=== PATIENT | female | born 1935 | race Caucasian/White ===

== ENCOUNTER 2018-01-07 17:46 | Inpatient (IN) | payer BC, MEDICARE ==
[~2018-01-07 17:46] MED LIST: DOCU-270 PO; MAG30ORA PO; MAGN400O6 PO
[2018-01-07 22:00] VITALS: BP 152/88
--- NOTE | 2018-01-07 22:00 | NUR ---
ALAN RN NOTE PT RECEIVED ON GURAXSON AND TRANSFERRED SAFELY TO ROOM 114-1 WITH 2 EMT'S. A/O X1 AND NOTED WITH FACIAL DROOP TO LEFT SIDE OF FACE. NOTED WITH APHASIA BUT ABLE TO SAY YES AND NO. ALSO NOTED WITH RIGHT UPPER AND LOWER EXTREMITY WEAKNESS/FLACCID. STRONG PULSES PALPABLE TO BUE/BLE. HAND COMBAT RIFLE CREWMEMBER ABLE WITH LEFT HAND AND FLACCID WITH RIGHT HAND. ABLE TO PUSH BACK ON HAND WITH LEFT FOOT BUT UNABLE TO MOVE RIGHT FOOT. NO C/O PAIN OR DISCOMFORT NOTED. HOB ELEVATED AND ON ASPIRATION PRECAUTIONS. ON 2L OF O2 VIA NC AND SATURATING WELL. SPOKE WITH BROTHER CELESTE (DPOA) AND STATED PT IS DNR/DNI. PT ALSO HAS ADVANCED DIRECTIVE. IV R HAND #20 AND LAC #18 CLEAN, DRY AND FLUSHING WELL. ONTIVEROS CATHETER IN PLACE. TELE-SR. LEFT MESSAGE TO AUXILIARY POWERPLANT OPERATOR AND AWAITING CALL BACK FOR ORDERS. WILL CONTINUE TO MONITOR.
[2018-01-07] MEDS ORDERED: LORA0.5T PO (23:23)
[2018-01-07] MEDS ORDERED: QUET25TA PO (23:23)
[2018-01-08] VITALS: BP 158/78
[2018-01-08] MEDS ORDERED: MAGNESIUM HYDROXIDE 30 ML UDC PO PRN
[2018-01-08] MEDS ORDERED: ACETAMINOPHEN 325 MG TABLET PO PRN
[2018-01-08] MEDS ORDERED: ZOLPIDEM TARTRATE 5 MG TABLET PO PRN
[2018-01-08] MEDS ORDERED: MAG HYDROX/AL HYDROX/SIMETH 30 ML UDC PO PRN
[2018-01-08] MEDS ORDERED: ONDANSETRON HCL/PF 4 MG/2 ML VIAL IVP PRN
[2018-01-08] MEDS: BLOOD SUGAR DIAGNOSTIC 1 EACH STRIP IN SCH ×4 (01:00→17:44)
[2018-01-08] MEDS: ATORVASTATIN 40 MG TABLET PO SCH ×3 (01:01→22:00)
[2018-01-08 01:07] LABS: APPEARANCE,URINE CLEAR (CLEAR); BILIRUBIN,URINE 1+ (NEGATIVE); BLOOD, URINE 2+ Ery/uL (NEGATIVE); KETONES,URINE 1+ (NEGATIVE); LEUKOCYTE ESTERASE ,URINE NEGATIVE (NEGATIVE); NITRITE, URINE NEGATIVE (NEGATIVE); PH,URINE 5.5 (5.0-8.0); PROTEIN,URINE 1+ mg/dl (NEGATIVE); UGLUCOSE NEGATIVE (NEGATIVE); UROBILINOGEN,URINE 0.2 EU/dL (0.2)
[2018-01-08 01:17] LABS: COLOR,URINE DARK YELLOW (YELLOW)
[2018-01-08 01:20] LABS: BACTERIA,URINE Moderate /HPF (None Seen); RBC,URINE 51-80 /HPF (0-2); SQUAMOUS EPITHELIAL CELL,UR Moderate /HPF (None Seen)
[2018-01-08 04:00] VITALS: BP 150/94
[2018-01-08 06:38] LABS: BASOPHILS % (AUTO) 0.2 % (0.0-2.0); EOSINOPHILS % (AUTO) 1.2 % (0.0-6.0); HEMATOCRIT 38 % (33-45); HEMOGLOBIN 13.2 g/dL (11.5-14.8); LYMPHOCYTES % (AUTO) 11.2 % (20.0-44.0); MEAN CORPUSCULAR HGB CONC 35 g/dl (31.0-36.0); MEAN CORPUSCULAR VOLUME 90 fL (82-100); MONOCYTES # (AUTO) 0.9 /CMM (0.1-1.30); MONOCYTES % (AUTO) 9.5 % (2.0-12.0); NEUTROPHILS # (AUTO) 7.3 /CMM (1.8-8.9); NEUTROPHILS % (AUTO) 77.9 % (43.0-81.0); PLATELET COUNT (AUTO) 307 /CMM (150-450); RDW COEFFICIENT OF VARIATION 13.5 (11.5-15.0); RED BLOOD CELL COUNT(AUTO) 4.22 MIL/uL (4.0-5.2); WHITE BLOOD COUNT (AUTO) 9.3 K/uL (4.3-11.0)
[2018-01-08 06:40] LABS: INR 1.14 (0.87-1.13)
[2018-01-08 06:58] LABS: ALANINE AMINOTRANSFERASE 21 U/L (12-78); ALBUMIN 2.9 g/dL (3.4-5.0); ALKALINE PHOSPHATASE 59 U/L (46-116); ASPARTATE AMINOTRANSFERASE 30 U/L (15-37); B-TYPE NATRIURETIC PEPTIDE 120 PG/ML (0-125); BILIRUBIN,TOTAL 0.9 mg/dL (0.2-1.0); CARBON DIOXIDE 26 mmol/L (21-32); CHLORIDE 106 mmol/L (98-107); CHOLESTEROL 203 mg/dL (<200); CREATININE 0.8 mg/dL (0.6-1.3); GLUCOSE 109 mg/dL (74-106); HDL CHOLESTEROL 47 mg/dL (40-60); LDL 138 mg/dL (0-99); MAGNESIUM 2.1 mg/dL (1.8-2.4); PHOSPHORUS 2.9 mg/dL (2.5-4.9); POTASSIUM 3.6 mmol/L (3.5-5.1); SODIUM SERUM 140 mmol/L (136-145); THYROID STIMULATING HORMONE 1.192 uIU/mL (0.358-3.74); TOTAL PROTEIN, SERUM 6.1 g/dL (6.4-8.2); TRIGLYCERIDES 72 mg/dL (30-150); UREA NITROGEN, BLOOD 24 mg/dL (7-18)
--- NOTE | 2018-01-08 07:15 | NUR ---
RN INITIAL NOTES: REC'D PT AWAKE ON BED, NOT IN ANY DISTRESS, A/O X 2-3, NOTED SLURRED/DELAYED SPEECH. ON NC/2LPM, NO SOB. ON TELEMONITOR, SR. HAS 2 IV LINE ACCESS: R HAND G20 & L AC G18, SL, BOTH FLUSHING WELL, NO S/SX OF INFECTION NOTED. NOTED R SIDED HEMIPARESIS. PROVIDED COMFORT & SAFETY MEASURES. BED KEPT LOW & IN LOCKED POS. CALL LIGHT PLACED W/IN REACH. WILL CONTINUE TO MONITOR & ATTEND PT NEEDS.
[2018-01-08] MEDS ORDERED: BLOOD SUGAR DIAGNOSTIC 1 EACH STRIP IN SCH (07:30)
--- NOTE | 2018-01-08 07:40 | NUR ---
RN NOTES: PT SEEN & EXAMINED BY DR. FUCHS W/ ORDERS MADE & CARRIED OUT.
[2018-01-08 08:00] VITALS: BP 130/74
[2018-01-08] MEDS: PANTOPRAZOLE 40 MG VIAL IV SCH (08:55)
[2018-01-08] MEDS: Z GUARD REMEDY 2 OZ OINT TP PRN (08:56)
[2018-01-08] MEDS: DOCUSATE SODIUM 100 MG CAPSULE PO SCH ×2 (09:00→16:37)
[2018-01-08] MEDS: ASPIRIN EC 325 MG TABLET.DR PO SCH (09:00)
--- NOTE | 2018-01-08 09:03 | NUR ---
WOUND CARE CONSULT: PT PRESENTS WITH BLANCHABLE REDNESS TO BUTTOCKS, PRESENT ON ADMISSION. ALL SKIN PROTECTION RECOMMENDATIONS DISCUSSED WITH NURSING STAFF. CURRENT MYKEL SCORE IS 14. WILL SEE PRN. LEFT SHOULDER LESION NOTED. DEFER TO MD FOR LESION. ALL SKIN PROTECTION MEASURES IN PLACE. MD IN AGREEMENT WITH PLAN OF CARE. Addendum: 01/08/18 at 0905 by NANCY REYNOLDS WNDNU Amended: Links added.
--- NOTE | 2018-01-08 09:30 | NUR ---
RN NOTES: SWALLOW EVAL DONE BY QUIANA MEJIA PT FAILED THE SWALLOW EVAL. KEEP NPO FOR NOW.
--- NOTE | 2018-01-08 10:00 | NUR ---
RN NOTES: CALLED MARY LOU DPOA & INFORMED ABOUT THE ORDERED MRI & MRA PER NEUROLOGIST. MARY LOU GAVE CONSENT OVER THE PHONE FOR THE PROCEDURE INCLUDING CONSENT FOR CONTRAST.
[2018-01-08] MEDS: IV NS 0.9% 1,000 ML IV PRN (10:09)
[2018-01-08] MEDS: POTASSIUM CL. PREMIX PERIPHER. 50 ML IV SCH ×2 (10:09→11:09)
--- NOTE | 2018-01-08 11:00 | NUR ---
RN NOTES: MRI/ MRA PROCEDURE DONE, PT TOLERATED THE PROCEDURE WELL. PT ACCOMPANIED ON THE MRI DEPT VIA ACLS PROTOCOL.
[2018-01-08 12:00] VITALS: BP 138/81
[2018-01-08 16:00] VITALS: BP 147/78
[2018-01-08] MEDS ORDERED: RIVAROXABAN 10 MG TABLET PO SCH (17:00)
[2018-01-08] MEDS ORDERED: GADODIAMIDE 2.5 MMOL/5 ML VIAL ONE (17:36)
--- NOTE | 2018-01-08 18:40 | NUR ---
RN CLOSING NOTES: NO ACUTE CHANGES NOTED W/IN SHIFT. PT STILL SHOWING NEURO DEFICITS - NOTED SLURRED/DELAYED SPEECH & R SIDED HEMIPARESIS. NO SOB WHILE ON NC/2LPM. ON TELEMONITOR, STILL SR. 2 IV LINE ACCESS: R HAND G20 & L AC G18, KEPT PATENT & INTACT W/ NO S/SX OF INFECTION NOTED. MRI & MRA RESULTS WERE COMMUNICATED ALREADY TO DR. FUCHS PER REPORT (AT 2PM). KEPT WELL RESTED. NEEDS ATTENDED. CALL LIGHT PLACED W/IN REACH. WILL ENDORSE TO PM RN FOR CAPRI.
--- NOTE | 2018-01-08 19:35 | NUR ---
SLEEVE SETTER SAFETY STITCH NOTES RECEIVED ON BED ON LEFT SIDE POSITION,BEDBOUND,ONTIVEROS CATH IN PLACE DRAINING YELLOWISH OUTPUT.SALINE LOCK LEFT AC INTACT AND PATENT.RIGHT HAND SALINE LOCK IN PLACE,RUNNING NS AT 100ML/HR RATE.DVT PUMP IN USED,RIGHT SIDED WEAKNESS HX NOTED.A/O X1,WITH SLURRED SPEECH NOTED DUE TO CVA HX.REPOSITION PER PROTOCOL.CALL LIGHT IN REACH,WILL CONTINUE TO MONITOR STATUS.
[2018-01-08 20:00] VITALS: BP 144/69
[2018-01-09] VITALS: BP 190/98
--- NOTE | 2018-01-09 | NUR ---
DRILLING INSPECTOR NOTES BLOOD PRESSURE AT MIDNIGHT 190/98,SCREAMING IN PAIN.
[2018-01-09] MEDS: BLOOD SUGAR DIAGNOSTIC 1 EACH STRIP IN SCH ×5 (00:15→23:03)
--- NOTE | 2018-01-09 00:30 | NUR ---
COMPUTER SECURITY SPECIALIST NOTES ACCU-CHECK BLOOD SUGAR CHECK 87.NO INSULIN COVERAGE
--- NOTE | 2018-01-09 00:45 | NUR ---
CONSULTING SME NOTES ACNO FILER FINISH WAS PAGE AND CALLED BACK WITH NEW ORDERS NOTED AND CARRIED OUT.
[2018-01-09] MEDS: MORPHINE SULFATE INJ 4 MG/ML DISP.SYRIN IV PRN ×4 (00:58→23:05)
[2018-01-09] MEDS: IV NS 0.9% 1,000 ML IV PRN ×2 (00:58→23:04)
--- NOTE | 2018-01-09 00:58 | NUR ---
AREA LOSS PREVENTION MANAGER NOTES IVF NS 75ML/HR RATE STARTED. MORPHINE 2MG IV GIVEN ORDERED FOR PAIN 9/10 ON PAIN SCALE.
[2018-01-09 04:00] VITALS: BP 169/86
--- NOTE | 2018-01-09 05:30 | NUR ---
WIRE THREADER NOTES ACCU-CHECK BLOOD SUGAR CHECK 91,NO INSULIN COVERAGE.
--- NOTE | 2018-01-09 06:32 | NUR ---
AUTO WASH BUFFER NOTES CALM AND QUIET THIS TIME.IVF INFUSING AT 75ML/HR RATE VIA RIGHT HAND.ONTIVEROS REMAINS IN PLACE DRAINING YELLOW ORANGE OUTPUT.REPOSITION PER PROTOCOL.CONTINUE NPO,FAILED SWALLOW EVAL.IN NO ACUTE DISTRESS.WILL ENDORSE TO DAY NURSE FOR CAPRI.
[2018-01-09 06:49] LABS: BASOPHILS # (AUTO) 0.1 /CMM (0.0-0.2); BASOPHILS % (AUTO) 0.8 % (0.0-2.0); EOSINOPHILS % (AUTO) 1.4 % (0.0-6.0); HEMATOCRIT 37 % (33-45); HEMOGLOBIN 12.8 g/dL (11.5-14.8); LYMPHOCYTES # (AUTO) 0.9 /CMM (0.8-4.8); LYMPHOCYTES % (AUTO) 10.4 % (20.0-44.0); MEAN CORPUSCULAR HGB CONC 34 g/dl (31.0-36.0); MEAN CORPUSCULAR VOLUME 90 fL (82-100); MONOCYTES # (AUTO) 0.8 /CMM (0.1-1.30); NEUTROPHILS # (AUTO) 6.7 /CMM (1.8-8.9); NEUTROPHILS % (AUTO) 78.4 % (43.0-81.0); PLATELET COUNT (AUTO) 299 /CMM (150-450); RDW COEFFICIENT OF VARIATION 14.4 (11.5-15.0); RED BLOOD CELL COUNT(AUTO) 4.15 MIL/uL (4.0-5.2); WHITE BLOOD COUNT (AUTO) 8.6 K/uL (4.3-11.0)
[2018-01-09 06:51] LABS: ALANINE AMINOTRANSFERASE 20 U/L (12-78); ALKALINE PHOSPHATASE 61 U/L (46-116); ASPARTATE AMINOTRANSFERASE 26 U/L (15-37); BILIRUBIN,TOTAL 0.9 mg/dL (0.2-1.0); CALCIUM, SERUM 9.1 mg/dL (8.5-10.1); CARBON DIOXIDE 24 mmol/L (21-32); CHLORIDE 106 mmol/L (98-107); CREATININE 0.7 mg/dL (0.6-1.3); GLUCOSE 95 mg/dL (74-106); PHOSPHORUS 3.1 mg/dL (2.5-4.9); POTASSIUM 3.9 mmol/L (3.5-5.1); SODIUM SERUM 141 mmol/L (136-145); TOTAL PROTEIN, SERUM 6.2 g/dL (6.4-8.2); UREA NITROGEN, BLOOD 25 mg/dL (7-18)
--- NOTE | 2018-01-09 07:55 | NUR ---
AUTOMATION TENDER OPENING NOTE PATIENT RECEIVED IN BED.AXOX1.ON O2 VIA NASAL CANULA 2L.NO SOB NO DISTRESS NOTED.ON TELE MONITOR WITH SR 85.IV ON R HAND #18 IVF NS AT 75CC/HR.L AC #18.HAS ONTIVEROS CATH .ALL NEEDS MET. CALL LIGHT IN REACH.BED LOCKED AND IN LOW POSITION.SRX3.CONTINUE TO MONITOR.
[2018-01-09 08:00] VITALS: BP 159/90
[2018-01-09] MEDS: PANTOPRAZOLE 40 MG VIAL IV SCH (08:39)
[2018-01-09] MEDS: DOCUSATE SODIUM 100 MG CAPSULE PO SCH ×2 (08:39→16:57)
[2018-01-09] MEDS: ASPIRIN EC 325 MG TABLET.DR PO SCH (08:40)
--- NOTE | 2018-01-09 13:00 | NUR ---
ALLEY WORKER NOTES SEEN BY FABIANA MCDANIEL ,PLAN TO D/C TO SNF DISCUSSED WITH BOARD AND CARE STAFF AT THE BEDSIDE.SWALLOW EVAL DONE.PATIENT IS ON PUREE WITH HONEY THICK LIQUID.
[2018-01-09 16:00] VITALS: BP 157/87
--- NOTE | 2018-01-09 19:00 | NUR ---
INSURANCE DEFENSE PARALEGAL SHIFT END NOTE PATIENT IN BED.AXOX1.ON O2 VIA NASAL CANULA 2L.NO SOB NO DISTRESS NOTED.ON TELE MONITOR WITH SR 82.IV ON R HAND #18 IVF NS AT 75CC/HR.L AC #18.HAS ONTIVEROS CATH .ALL NEEDS MET. CALL LIGHT IN REACH.BED LOCKED AND IN LOW POSITION.SRX3.WILL ENDORSE TO PM NURSE FOR CAPRI.
--- NOTE | 2018-01-09 19:38 | NUR ---
MS RN NOTES RECEIVED PT ON BED. ALERT ORIENTEDX1. ON NASAL CANNULA 2LPM SATURATING WELL. IV ACCESS ON RHAND AND LAC #18 PATENT AND INTACT NS @75CC/HR. HEAD OF BED ELEVATED. SIDE RAILS UP. CALL LIGHT WITHIN REACH. WILL CONTINUE TO MONITOR PT CLOSELY.
[2018-01-09 20:00] VITALS: BP 150/87
--- NOTE | 2018-01-09 20:10 | NUR ---
MS RN NOTES CALL ECLECTIC DOCTOR DR FOR PT HIGH BLOOD RPESSURE OF 185/101. WILL PLACED ORDER VERBALIZED BY THE ECLECTIC DOCTOR.
--- NOTE | 2018-01-09 20:15 | NUR ---
MS RN NOTES PRN HYDRALAZINE NOT GIVEN. PT ON PERMISSIVE HTN PLAN
[2018-01-09] MEDS ORDERED: hydrALAZINE HCL IV 20 MG VIAL IV PRN (20:30)
[2018-01-09 21:00] VITALS: BP 150/87
[2018-01-09] MEDS: ATORVASTATIN 40 MG TABLET PO SCH (21:12)
--- NOTE | 2018-01-09 21:12 | NUR ---
MS RN NOTES PT REFUSING LIPITOR. EXPLAINED RISK AND BENEFITS X3. PT STILL REFUSED.
--- NOTE | 2018-01-09 22:19 | NUR ---
MS RN NOTES OFFERED AGAIN LIPITOR, PT STRONGLY REFUSED. EXPLAINED RISK AND BENEFITS X3. WILL CONTINUE TO MONITOR
--- NOTE | 2018-01-09 22:50 | NUR ---
MS RN NOTES PT OFFERED LIPITOR AGAIN. PT STILL REFUSED. CHARGE NURSE INFORMED.
[2018-01-10 04:00] VITALS: BP 166/99
[2018-01-10] MEDS: BLOOD SUGAR DIAGNOSTIC 1 EACH STRIP IN SCH ×3 (05:12→17:20)
--- NOTE | 2018-01-10 07:23 | NUR ---
MS RN NOTES NO ACUTE CHANGES NOTED DURING THE SHIFT. DUE MEDS GIVEN. PROVIDED COMFORT AND SAFETY. ENDORSE TO THE AM NURSE FOR CAPRI.
--- NOTE | 2018-01-10 07:36 | NUR ---
MS RN NOTES PATIENT RECEIVED RESTING INSIDE ROOM. AWAKE, ALERT AND ORIENTED X 1. AROUSABLE TROUGH VERBAL AND TACTILE STIMULI. BREATHING EVEN AND UNLABORED. O2 AT 2L/MIN VIA NC. NO SOB OR ACUTE DISTRESS NOTED. DENIES ANY PAIN OR DISCOMFORT. IV SITE INTACT AND PATENT, NO SWELLING OR BLEEDING NOTED ON SITE. WILL CONTINUE TO MONITOR. BED LOCKED AND IN LOW POSITION. MAINTAINED ASPIRATION PRECAUTION, MAINTAINED HOB ELEVATION AT 45. CALL LIGHT WITHIN EASY REACH
[2018-01-10 08:00] VITALS: BP 141/67
[2018-01-10] MEDS: ASPIRIN EC 325 MG TABLET.DR PO SCH (08:43)
[2018-01-10] MEDS: PANTOPRAZOLE 40 MG VIAL IV SCH (08:44)
[2018-01-10] MEDS: DOCUSATE SODIUM 100 MG CAPSULE PO SCH ×2 (08:44→17:20)
[2018-01-10] MEDS: IV NS 0.9% 1,000 ML IV PRN (14:07)
[2018-01-10 16:00] VITALS: BP 159/82
--- NOTE | 2018-01-10 16:25 | NUR ---
Per case hardener Damian- patient has been accepted at [facility] awaiting aut. Called and eft message to Jackie Gee [facility] case hardener [phone] regarding dc planning needs for SNF rehab Dx. Acute CVA. All clinicals including PT/OT/ST eval faxed to MAR[facility] [phone] for review. Addendum: 01/10/18 at 1708 by EVAN PHAM RN Amended: Links added.
--- NOTE | 2018-01-10 17:10 | NUR ---
received a call back from case resource manager Vivian [phone], case is currently being reviewed for SNF approval. Addendum: 01/10/18 at 1710 by EVAN PHAM RN Amended: Links added.
--- NOTE | 2018-01-10 18:50 | NUR ---
MS RN NOTES PATIENT RESTING INSIDE ROOM, AWAKE, ALERT AND ORIENTED X 1, VERBALLY RESPONSIVE AND RESPONDS TO VERBAL AND TACTILE STIMULI. BREATHING EVEN AND UNLABORED. O2 AT 2L/MIN VIA NC, NO SOB OR ACUTE DISTRESS NOTED. PATIENT DENIES ANY PAIN OR DISCOMFORT AT THIS TIME. NO CHANGES IN LOC NOTED. IV SITE INTACT AND PATENT, NO SWELLING OR BLEEDING NOTED AT THIS TIME. WILL ENDORSE TO INCOMING SHIFT FOR CAPRI. BED LOCKED AND IN LOW POSITION. BILATERAL UPPER SIDE RAILS UP AND LOCKED. CALL LIGHT WITHIN EASY REACH
--- NOTE | 2018-01-10 19:30 | NUR ---
RN NOTES: RECEIVED PATIENT AWAKE ON BED,A/O X1 WITH PERIODS OF CONFUSION, ABLE TO VERBALIZE NEEDS, TAKES TIME TO COMPLETE HER WORDS,ON CLOSE WATCH, FALL,SAFETY, ASPIRATION PRECAUTION OBSERVED, ON 02 AT 2L/MIN SPO2-97%; CANNULA ON LAC G#18 & RH G#18 PATENT; ON IVF OF NS AT 75 ML/HR;KEPT ON SEMI FOWLERS POSITION, NO SOB OR SIGN OF RESPIRATORY DISTRESS NOTED.
[2018-01-10 20:00] VITALS: BP 126/50
[2018-01-10] MEDS: ATORVASTATIN 40 MG TABLET PO SCH (22:18)
--- NOTE | 2018-01-10 22:35 | NUR ---
RN NOTES: PATIENT ABLE TO SWALLOW AND TAKE ORAL MEDICATION CRUSHED WITH APPLESAUCE, TOLERATED WELL; SHE VERBALIZED SHE HAD PAIN 5/10 AND REQUEST FOR MEDICATION, NORCO GIVEN, NON PHARMACOLOGIC INTERVENTION PROVIDED, DIM LIT AND BACK RUB DONE,WILL CONTINUE TO MONITOR.
[2018-01-10] MEDS: HYDROCODONE/APAP 5/325MG 1 EACH TABLET PO PRN (22:39)
--- NOTE | 2018-01-11 | NUR ---
RN NOTES: BLOOD SUGAR CHECK-95, ABLE TO TAKE A SHORT NAP IN BETWEEN, WILL CONTINUE TO MONITOR FOR SIGN OF HYPER/HYPOGLYCEMIA.
[2018-01-11] MEDS: BLOOD SUGAR DIAGNOSTIC 1 EACH STRIP IN SCH ×4 (00:26→18:24)
[2018-01-11] MEDS: IV NS 0.9% 1,000 ML IV PRN ×2 (03:24→16:10)
--- NOTE | 2018-01-11 03:31 | NUR ---
RN NOTES: IVF FINISHED, NEW BOTTLE OF NS STARTED AT 75 ML/HR.
[2018-01-11 04:00] VITALS: BP 154/95
--- NOTE | 2018-01-11 05:23 | NUR ---
RN NOTES: ASLEEP AT SHORT INTERVALS, MORNING CARE DONE, NO BM, BED BATH RENDERED, CLEAN AND CHANGE,SHE IS MORE CONVERSANT AND RESPONDING TO NURSES CONVERSATION, SHE SAY "THANK YOU" AFTER SHE WAS CHANGE,THEN SHE GO BACK TO SLEEP.
--- NOTE | 2018-01-11 06:52 | NUR ---
RN NOTES: ASLEEP AT SHORT INTERVAL, NO PAIN OR DISCOMFORT, LYING COMFORTABLE IN BED, ENDORSED FOR CONTINUITY OF CARE.CALL LIGHT WITHIN EASY REACH.
--- NOTE | 2018-01-11 07:31 | NUR ---
MS RN OPENING NOTES RECEIVED PATIENT AWAKE IN BED IN NO ACUTE SIGNS OF DISTRESS. A/O X1, SAME VERBALLY RESPONSIVE, DENIES PAIN OR DISCOMFORTS AT THIS TIME. ON 02 VIA N/C 2LPM, RESPIRATION EVEN AND UNLABORED. IV ACCESS ON LAC G#18 INTACT AND PATENT, NO SWELLING OR PHLEBITIS NOTED TO SITE. ONTIVEROS CATH IN PLACE AND ACTIVELY DRAINING CLEAR YELLOW OUTPUT TO BEDSIDE COLLECTION BAG. BED IN LOW/LOCKED POSITION WITH SIDE-RAILS UP X3. CALL LIGHT WITHIN REACH. WILL MAINTAIN ALL SAFETY MEASURES AND CONTINUE TO MONITOR PT'S STATUS.
[2018-01-11 08:00] VITALS: BP 151/70
[2018-01-11] MEDS: PANTOPRAZOLE 40 MG VIAL IV SCH (09:00)
[2018-01-11] MEDS: DOCUSATE SODIUM 100 MG CAPSULE PO SCH ×2 (09:01→16:32)
[2018-01-11] MEDS: ASPIRIN EC 325 MG TABLET.DR PO SCH (09:01)
[2018-01-11 16:00] VITALS: BP 149/76
--- NOTE | 2018-01-11 18:38 | NUR ---
MS RN CLOSING NOTES PATIENT ASLEEP IN BED AT THIS TIME, EASILY AWAKENS TO TACTILE AND VERBAL STIMULI. NO SIGNIFICANT CHANGES NOTED THROUGHOUT THE DAY. PT ON 02 VIA N/C 2LPM, BREATHING EVEN WITH NO SOB NOTED. IV ACCESS ON LAC G#18 INTACT AND PATENT, IVF OF NS @ 75ML/HR INFUSING WELL, NO SWELLING OR PHLEBITIS NOTED TO SITE. ONTIVEROS CATH IN PLACE AND ACTIVELY DRAINING CLEAR YELLOW OUTPUT TO BEDSIDE COLLECTION BAG, ONTIVEROS CARE DONE. PT TURNED AND REPOSITIONED Q2HRS AND PRN. HOB KEPI ELEVATED. BED IN LOW/LOCKED POSITION WITH SIDE-RAILS UP X3. CALL LIGHT WITHIN REACH. ALL SAFETY MEASURES KEPT IN PLACE. DNR/DNI STATUS MAINTAINED. ALL NEEDS AND CARE PROVIDED WELL. WILL ENDORSE TO HAT BLOCKER NURSE FOR CAPRI.
--- NOTE | 2018-01-11 19:40 | NUR ---
MS RN NOTE RECEIVED PATIENT FROM DAY SHIFT, PATIENT IS ALERT AND ORIENTEDX2, RIGHT SIDE WEAKNESS NOTED, RESTING IN BED COMFORTABLY AT THIS TIME. IV ON LEFT AC AND RIGHT HAND ARE PATENT AND INTACT, NS IS RUNNING. SRX2, BED IN LOW POSITION, CALL LIGHT WITHIN REACH, WILL CONTINUE TO MONITOR PATIENT.
[2018-01-11 20:00] VITALS: BP 157/84
[2018-01-11] MEDS: ATORVASTATIN 40 MG TABLET PO SCH (21:06)
[2018-01-12] MEDS: BLOOD SUGAR DIAGNOSTIC 1 EACH STRIP IN SCH ×4 (00:12→17:35)
[2018-01-12 04:00] VITALS: BP 163/95
[2018-01-12] MEDS: IV NS 0.9% 1,000 ML IV PRN ×2 (04:13→21:48)
--- NOTE | 2018-01-12 06:34 | NUR ---
MS RN NOTE PATIENT IS RESTING IN BED COMFORTABLY, NO ACUTE EVENT NOTED THROUGHOUT THE SHIFT. NO S/S OF RESPIRATORY DISTRESS OR FACIAL GRIMACE NOTED. TWO IV SITES ARE PATENT AND INTACT, NS IS RUNNING. WILL ENDORSE TO DAY SHIFT NURSE FOR CAPRI.
[2018-01-12 06:37] LABS: BASOPHILS % (AUTO) 0.5 % (0.0-2.0); EOSINOPHILS % (AUTO) 3.2 % (0.0-6.0); HEMATOCRIT 37 % (33-45); HEMOGLOBIN 12.6 g/dL (11.5-14.8); LYMPHOCYTES # (AUTO) 0.8 /CMM (0.8-4.8); LYMPHOCYTES % (AUTO) 10.2 % (20.0-44.0); MEAN CORPUSCULAR HGB CONC 34 g/dl (31.0-36.0); MEAN CORPUSCULAR VOLUME 90 fL (82-100); MONOCYTES # (AUTO) 0.7 /CMM (0.1-1.30); MONOCYTES % (AUTO) 9.8 % (2.0-12.0); NEUTROPHILS # (AUTO) 5.7 /CMM (1.8-8.9); NEUTROPHILS % (AUTO) 76.3 % (43.0-81.0); PLATELET COUNT (AUTO) 304 /CMM (150-450); RDW COEFFICIENT OF VARIATION 14.1 (11.5-15.0); RED BLOOD CELL COUNT(AUTO) 4.11 MIL/uL (4.0-5.2); WHITE BLOOD COUNT (AUTO) 7.5 K/uL (4.3-11.0)
[2018-01-12 06:58] LABS: CALCIUM, SERUM 8.6 mg/dL (8.5-10.1); CARBON DIOXIDE 28 mmol/L (21-32); CHLORIDE 104 mmol/L (98-107); CREATININE 0.6 mg/dL (0.6-1.3); GLUCOSE 104 mg/dL (74-106); MAGNESIUM 1.8 mg/dL (1.8-2.4); PHOSPHORUS 2.4 mg/dL (2.5-4.9); POTASSIUM 3.4 mmol/L (3.5-5.1); SODIUM SERUM 139 mmol/L (136-145); UREA NITROGEN, BLOOD 11 mg/dL (7-18)
--- NOTE | 2018-01-12 07:20 | NUR ---
MS RN OPENING NOTES RECEIVED PATIENT IN BED SLEEPING, EASILY AROUSE. PATIENT IS ALERT AND ORIENTEDX2, RIGHT SIDE WEAKNESS NOTED, NOTED WITH FACIAL DROOP TO LEFT SIDE OF FACE DUE TO CVA HX. RIGHT HAND SWELLING NOTED, ELEVATED EXTREMITY. ON 2LPM,VIA NC, SPO2 96% IV SITE INTACT AND PATENT. ONTIVEROS IN PLACE DRAINING CLEAR YELLOW URINE. ASPIRATION PRECAUTION IN PLACE. BED IN LOW/LOCKED POSITION, HOB ELEVATED, SIDERAILS UPX2. CALL LIGHT WITHIN REACH, WILL CONTINUE TO MONITOR ACCORDINGLY
[2018-01-12 08:00] VITALS: BP 171/91
--- NOTE | 2018-01-12 08:00 | NUR ---
RN NOTES IV SITE ON RIGHT HAND NOT PATENT. REMOVED IT, APPLIED PRESSURE, NO BLEEDING, NO COMPLICATION.
[2018-01-12 09:00] VITALS: BP 153/93
[2018-01-12] MEDS: DOCUSATE SODIUM 100 MG CAPSULE PO SCH ×2 (09:03→17:35)
[2018-01-12] MEDS: ASPIRIN 325 MG TABLET PO SCH (09:03)
[2018-01-12] MEDS: PANTOPRAZOLE 40 MG VIAL IV SCH (09:03)
[2018-01-12] MEDS ORDERED: POTASSIUM CHLORIDE 20 MEQ POWDER PACKET PO SCH (12:00)
[2018-01-12] MEDS ORDERED: NEUTRA PHOS 1 POWD.PACKET PO ONE (14:00)
[2018-01-12 16:00] VITALS: BP 152/92
[2018-01-12] MEDS: Z GUARD REMEDY 2 OZ OINT TP PRN (19:02)
--- NOTE | 2018-01-12 19:20 | NUR ---
RN NOTES IV SITE ON LEFT AC NOT PATENT. REMOVED IV, APPLIED PRESSURE, NO BLEEDING, NO COMPLICATION.
--- NOTE | 2018-01-12 19:30 | NUR ---
RN CLOSING NOTES PATIENT IN STABLE CONDITION. ALL NEEDS ATTENDED AND PROVIDED. TURNED AND REPOSITIONED PATIENT EVERY 2 HRS NEEDED. KEPT PATIENT SAFE AND COMFORTABLE. WOUND CARE DONE. BED IN LOW/LOCKED POSITION, SIDERAILS UPX2, HOB ELEVATED, CALL LIGHT IN REACH. ENDORSED TO NIGHT RN FOR CAPRI.
[2018-01-12 20:00] VITALS: BP 156/87
--- NOTE | 2018-01-12 20:00 | NUR ---
RN INITIAL NOTES RECEIVED PATIENT IN BED SLEEPING, EASILY AROUSE. PATIENT IS ALERT AND ORIENTEDX2, RIGHT SIDE WEAKNESS NOTED, NOTED WITH FACIAL DROOP TO LEFT SIDE OF FACE DUE TO CVA HX. RIGHT HAND SWELLING NOTED, ELEVATED EXTREMITY. ON 2LPM,VIA NC, SPO2 96% IV SITE INTACT AND PATENT. ONTIVEROS IN PLACE DRAINING CLEAR YELLOW URINE. ASPIRATION PRECAUTION IN PLACE. BED IN LOW/LOCKED POSITION, HOB ELEVATED, SIDERAILS UPX2. CALL LIGHT WITHIN REACH, WILL CONTINUE TO MONITOR.
[2018-01-12] MEDS: ATORVASTATIN 40 MG TABLET PO SCH (21:40)
--- NOTE | 2018-01-12 22:45 | NUR ---
RN NOTES GAVE REPORT TO ETHEL HINES FOR CAPRI
[2018-01-13] MEDS: BLOOD SUGAR DIAGNOSTIC 1 EACH STRIP IN SCH ×5 (00:52→23:35)
[2018-01-13 04:00] VITALS: BP 188/102
[2018-01-13] MEDS: MORPHINE SULFATE INJ 4 MG/ML DISP.SYRIN IV PRN (04:17)
--- NOTE | 2018-01-13 04:30 | NUR ---
RN MS NOTES, NOTED PATIENT WITH BP OF 188/102, HR 96 CALLED MD BOTTLE WASHER FADI, AND INFORM ABOUT PATIENT'S BP, AND HE STATED THAT HE WAS GOING TO INPUT ORDERS IN THE SYSTEM, WILL CONTINUE TO MONITOR PATIENT CLOSELY.
--- NOTE | 2018-01-13 05:02 | NUR ---
MS RN NOTES, RECEIVED CALL FROM DR APONTE SUPERVISOR ENGRAVING, AND STATED THAT HE THEY ACTUALLY WANT BLOOD PRESSURE UP, AND THAT 188/102 IS OK, THAT BP NEEDS TO BE HIGH OTHERWISE PATIENT CAN HAVE ANOTHER STROKE, SO NO ORDER FOR HIGH BP WAS PLACED, WILL CONTINUE TO MONITOR PATIENT CLOSELY. PATIENT ASYMPTOMATIC AT THIS TIME.
--- NOTE | 2018-01-13 05:30 | NUR ---
MS RN NOTES, RECHECK BLOOD PRESSURE AT THIS TIME AND BP 153/89, WILL CONTINUE TO MONITOR CLOSELY.
--- NOTE | 2018-01-13 06:52 | NUR ---
MS RN CLOSING NOTES, PATIENT IN BED , SLEEPING AT THIS TIME, BREATHING EVEN AND UNLABORED, NO SOB/ACUTE DISTRESS NOTES AT THIS TIME, NO S/S OF PAIN OR DISCOMFORT NOTED AT THIS TIME, LEFT HAND IV ACCESS PATENT AND INTACT, BED LOCKED AND LOWEST POSITION , EPISODE OF HIGH BLOOD PRESSURE, AND PER MD COMMUNITY ASSOCIATION MANAGER THAT'S THE DESIRE BP FOR THE PATIENT, DRY AND CLEAN, AND WELL REPOSITIONED, CALL LIGHT W/I REACH, WILL ENDORSE CONTINUITY OF CARE TO ONCOMING NURSE.
[2018-01-13 07:03] LABS: BASOPHILS # (AUTO) 0.1 /CMM (0.0-0.2); BASOPHILS % (AUTO) 1.1 % (0.0-2.0); EOSINOPHILS % (AUTO) 1.4 % (0.0-6.0); HEMATOCRIT 38 % (33-45); HEMOGLOBIN 12.9 g/dL (11.5-14.8); LYMPHOCYTES # (AUTO) 0.9 /CMM (0.8-4.8); LYMPHOCYTES % (AUTO) 10.7 % (20.0-44.0); MEAN CORPUSCULAR HGB CONC 34 g/dl (31.0-36.0); MEAN CORPUSCULAR VOLUME 90 fL (82-100); MONOCYTES # (AUTO) 0.8 /CMM (0.1-1.30); MONOCYTES % (AUTO) 9.3 % (2.0-12.0); NEUTROPHILS # (AUTO) 6.3 /CMM (1.8-8.9); NEUTROPHILS % (AUTO) 77.5 % (43.0-81.0); PLATELET COUNT (AUTO) 346 /CMM (150-450); RDW COEFFICIENT OF VARIATION 14.3 (11.5-15.0); RED BLOOD CELL COUNT(AUTO) 4.19 MIL/uL (4.0-5.2); WHITE BLOOD COUNT (AUTO) 8.2 K/uL (4.3-11.0)
[2018-01-13 07:30] LABS: CALCIUM, SERUM 8.6 mg/dL (8.5-10.1); CARBON DIOXIDE 29 mmol/L (21-32); CHLORIDE 105 mmol/L (98-107); CREATININE 0.7 mg/dL (0.6-1.3); GLUCOSE 119 mg/dL (74-106); MAGNESIUM 1.8 mg/dL (1.8-2.4); PHOSPHORUS 3.4 mg/dL (2.5-4.9); POTASSIUM 3.9 mmol/L (3.5-5.1); SODIUM SERUM 141 mmol/L (136-145); UREA NITROGEN, BLOOD 13 mg/dL (7-18)
--- NOTE | 2018-01-13 07:30 | NUR ---
INITIAL NOTE: RECEIVED PATIENT IN BED SLEEPING BUT EASILY AROUSE. PATIENT ORIENTED TO NAME AND PLACE ALERT. PT TRANSFER FORM [place] TO SNF PLACEMENT. RESIDUAL SIGNS OF CVA NOTED WITH RIGHT SIDE WEAKNESS AND FACIAL DROOP TO LEFT SIDE OF FACE. RIGHT HAND SWELLING NOTED, ELEVATED EXTREMITY. ON 2LPM,VIA NC, SPO2 96% IV SITE INTACT AND PATENT. ONTIVEROS IN PLACE DRAINING CLEAR YELLOW URINE. ASPIRATION PRECAUTION IN PLACE. BED IN LOW/LOCKED POSITION, HOB ELEVATED, SIDERAILS UPX2. CALL LIGHT WITHIN REACH, WILL CONTINUE TO MONITOR.
[2018-01-13 08:00] VITALS: BP 195/82
--- NOTE | 2018-01-13 08:30 | NUR ---
MS DAVENPORT OPENING NOTES INITIAL NOTE: RECEIVED PATIENT IN BED SLEEPING BUT AROUSABLE TO NAME AND TACTILE STIMULATION. RESIDUAL SIGNS OF CVA NOTED WITH RIGHT SIDE WEAKNESS AND FACIAL DROOP TO LEFT SIDE. RIGHT HAND SWELLING NOTED, KEPT EXTREMITY ELEVATED. ON 2LPM,VIA NC, SPO2 96% IV SITE INTACT AND PATENT. ONTIVEROS IN PLACE DRAINING CLEAR YELLOW URINE. ASPIRATION PRECAUTION IN PLACE. BED IN LOW/LOCKED POSITION, HOB ELEVATED, SIDERAILS UPX2. CALL LIGHT WITHIN REACH, WILL CONTINUE TO MONITOR. Addendum: 01/13/18 at 1348 by AXEL HARVEY RN ADD. RECEIVED REPORT FROM ETHEL TUCKER FOR CON. OF CARE. PT CURRENT BP 195/82. PER REPORT BP OK TO KEEP HIGH, WILL CONT TO MONITOR
[2018-01-13] MEDS: PANTOPRAZOLE 40 MG VIAL IV SCH (08:49)
[2018-01-13] MEDS: DOCUSATE SODIUM 100 MG CAPSULE PO SCH ×2 (08:49→17:26)
[2018-01-13] MEDS: ASPIRIN 325 MG TABLET PO SCH (09:00)
--- NOTE | 2018-01-13 09:30 | NUR ---
RN NOTES RECHECKED BP, CURRENT BP 152/82
--- NOTE | 2018-01-13 12:00 | NUR ---
RN NOTES ST AT BEDSIDE, PT APPEARS DROWSY BUT AROUSABLE WHEN CALLED, ST SUGGESTS GT PLACEMENT. NOTIFIED DATA ANALYSIS ASSISTANT LISA RE: ST SUGGESTION AND PT'S CONDITION, APPEARS MORE DROWSY AND VS, CURRENT BP:149/78, WITH NO NEW ORDERS AT THIS TIME. WILL CONT TO MONITOR
[2018-01-13 16:00] VITALS: BP 154/95
[2018-01-13] MEDS: IV NS 0.9% 1,000 ML IV PRN (17:37)
--- NOTE | 2018-01-13 18:20 | NUR ---
RN NOTES SPOKE WITH PT'S BROTHER TO OBTAIN CONSENT FOR EGD AND PEG PLACEMENT PROCEDURE, EXPLAINED RISKS AND BENEFITS, MARY LOU CONSENT FOR EGD PROCEDURE BUT STATES THAT "I DON'T THINK CONSUELO WOULD LIKE TO HAVE TUBE PLACEMENT. SO I DO NOT GIVE CONSENT FOR THAT." RESPECTED PT'S DECISION, KVNG GONZALEZ AND KVNG ESPINAL MADE AWARE WITH NO NEW ORDER AT THIS TIME
--- NOTE | 2018-01-13 18:50 | NUR ---
RN CLOSING NOTES NO ACUTE CHANGES IN PT DURING SHIFT, SAFETY MEASURES OBSERVED AT ALL TIMES, ALL NEEDS MET, ENDORSED TO PM SHIFT NURSE FOR CONT. OF CARE
--- NOTE | 2018-01-13 19:20 | NUR ---
RN INITIAL NOTES RECEIVED PATIENT IN BED SLEEPING, BUT EASILY TO AROUSES ALERT AND ORIENTED X2, BREATHING EVEN AND UNLABORED, NO S/S OR C/O PAIN OR DISCOMFORT NOTED AT THIS TIME. RIGHT HAND SWELLING NOTED, ELEVATED EXTREMITY, ON 2LPM VIA NC, SPO2 96% AT THIS TIME, LEFT HAND IV SITE INTACT AND PATENT, IVF RUINING WELL AND PATIENT TOLERATED WELL, ONTIVEROS IN PLACE DRAINING CLEAR YELLOW URINE, PATENCY INTACT, ASPIRATION PRECAUTION IN PLACE. BED IN LOW/LOCKED POSITION, KEPT DRY AND CLEAN, HOB ELEVATED, CALL LIGHT WITHIN REACH, WILL CONTINUE TO MONITOR CLOSELY.
--- NOTE | 2018-01-13 19:20 | NUR ---
RN NOTES SEEN ON ROUND INTERNET SALES DIRECTOR KYLIE, NOTIFIED HER ABOUT BROTHER'S DECISION RE: EGD WITH PEG PLACEMENT PROCEDURE WITH ORDERS TO DO ANOTHER ST EVAL AND RESUME DIET FOR NOW, ENDORSED TO NEXT SHIFT
[2018-01-13 20:00] VITALS: BP 175/84
[2018-01-13] MEDS: ATORVASTATIN 40 MG TABLET PO SCH (21:11)
[2018-01-14 04:00] VITALS: BP 175/84
[2018-01-14] MEDS: BLOOD SUGAR DIAGNOSTIC 1 EACH STRIP IN SCH ×3 (06:00→17:44)
[2018-01-14] MEDS: IV NS 0.9% 1,000 ML IV PRN ×2 (06:34→21:13)
[2018-01-14 06:37] LABS: BASOPHILS % (AUTO) 0.4 % (0.0-2.0); EOSINOPHILS % (AUTO) 1.4 % (0.0-6.0); HEMATOCRIT 37 % (33-45); HEMOGLOBIN 12.7 g/dL (11.5-14.8); LYMPHOCYTES # (AUTO) 0.7 /CMM (0.8-4.8); LYMPHOCYTES % (AUTO) 7.9 % (20.0-44.0); MEAN CORPUSCULAR HGB CONC 34 g/dl (31.0-36.0); MEAN CORPUSCULAR VOLUME 90 fL (82-100); MONOCYTES # (AUTO) 0.6 /CMM (0.1-1.30); MONOCYTES % (AUTO) 7.1 % (2.0-12.0); NEUTROPHILS # (AUTO) 7.5 /CMM (1.8-8.9); NEUTROPHILS % (AUTO) 83.2 % (43.0-81.0); PLATELET COUNT (AUTO) 397 /CMM (150-450); RDW COEFFICIENT OF VARIATION 13.8 (11.5-15.0); RED BLOOD CELL COUNT(AUTO) 4.16 MIL/uL (4.0-5.2)
--- NOTE | 2018-01-14 06:50 | NUR ---
MS RN CLOSING NOTES, PATIENT IN BED , AWAKE AT THIS TIME , BREATHING EVEN AND UNLABORED, NO SOB/ACUTE DISTRESS NOTES AT THIS TIME, NO S/S OF PAIN OR DISCOMFORT NOTED AT THIS TIME, LEFT FA IV ACCESS PATENT AND INTACT, IVF RUNNING WELL AND PATENT TOLERATED WELL, BED LOCKED AND LOWEST POSITION , DRY AND CLEAN, AND WELL REPOSITIONED, CALL LIGHT W/I REACH, WILL ENDORSE CONTINUITY OF CARE TO ONCOMING NURSE.
[2018-01-14 07:13] LABS: CALCIUM, SERUM 8.8 mg/dL (8.5-10.1); CARBON DIOXIDE 26 mmol/L (21-32); CHLORIDE 105 mmol/L (98-107); CREATININE 0.7 mg/dL (0.6-1.3); GLUCOSE 101 mg/dL (74-106); MAGNESIUM 1.8 mg/dL (1.8-2.4); PHOSPHORUS 2.9 mg/dL (2.5-4.9); POTASSIUM 3.7 mmol/L (3.5-5.1); SODIUM SERUM 141 mmol/L (136-145); UREA NITROGEN, BLOOD 16 mg/dL (7-18)
[2018-01-14] MEDS: DOCUSATE SODIUM 100 MG CAPSULE PO SCH ×2 (07:59→17:00)
[2018-01-14] MEDS: PANTOPRAZOLE 40 MG VIAL IV SCH (07:59)
[2018-01-14] MEDS: ASPIRIN 325 MG TABLET PO SCH (07:59)
[2018-01-14 08:00] VITALS: BP 162/90
[2018-01-14] MEDS: HYDROCODONE/APAP 5/325MG 1 EACH TABLET PO PRN (08:00)
--- NOTE | 2018-01-14 12:46 | NUR ---
FOLLOW UP WITH BROTHER REGARDING PEG CONSENT,LEFT MESSAGE,[phone].AWAITS RESPONSE.
[2018-01-14 16:00] VITALS: BP 158/82
--- NOTE | 2018-01-14 16:13 | NUR ---
BX approved SNF, patient has been accepted at [facility] . Failed swallow eval,will need PEG per pending consent. Left message to brothgokul Cabrera [phone]/ [phone]. Addendum: 01/14/18 at 1613 by EVAN PHAM RN Amended: Links added.
--- NOTE | 2018-01-14 18:40 | NUR ---
spoke with brother Rick, he refused PEG placement,brother want to discharge patient back to [facility] and care under hospice care.Family want to use the [facility] and [facility] hospice company. Spoke with Dara intermodal owner operator truck driver of [facility] [phone], she will be able to accept patient back tomorrow after lunch.Faxed hospice eval order to [facility] [phone] , spoke with Jessie lyman will contact family for consent and eval. Addendum: 01/14/18 at 1843 by EVAN PHAM RN Amended: Links added.
--- NOTE | 2018-01-14 19:30 | NUR ---
MS RN INITIAL NOTES RECEIVED PATIENT IN BED SLEEPING, BUT EASILY TO AROUSES ALERT AND ORIENTED TO SELF, BREATHING EVEN AND UNLABORED, NO S/S OR C/O PAIN OR DISCOMFORT NOTED AT THIS TIME, RIGHT HAND STILL SWOLLEN, , ELEVATED EXTREMITY, ON 2LPM VIA NC, SPO2 96% AT THIS TIME, LEFT FA IV SITE INTACT AND PATENT, IVF RUINING WELL AND PATIENT TOLERATED WELL, ONTIVEROS IN PLACE DRAINING CLEAR YELLOW URINE, PATENCY INTACT, ASPIRATION PRECAUTION IN PLACE. BED IN LOCKED AND LOWEST POSITION, KEPT DRY AND CLEAN, HOB ELEVATED, CALL LIGHT WITHIN REACH, WILL CONTINUE TO MONITOR CLOSELY
[2018-01-14] MEDS: ATORVASTATIN 40 MG TABLET PO SCH (22:00)
--- NOTE | 2018-01-15 01:10 | NUR ---
MS RN NOTES, ENDORSED PATIENT TO ETHEL ZUNIGA FOR CONTINUATION OF CARE, PATIENT IN STABLE CONDITION AT THIS TIME.
--- NOTE | 2018-01-15 01:17 | NUR ---
MS RN NOTE RECEIVED REPORT FROM NURSE MCDOWELL. PT IN BED ASLEEP, NO DISTRESS OR DISCOMFORT NOTED. NO S/S OF PAIN NOTED. IVF INFUSING WELL. NO S/S OF INFILTRATION NOTED. SIDE RAILS UP X 3 AND CALL LIGHT WITHIN REACH. CONTINUE TO MONITOR HER.
[2018-01-15 04:00] VITALS: BP 144/64
[2018-01-15] MEDS: BLOOD SUGAR DIAGNOSTIC 1 EACH STRIP IN SCH ×4 (06:44→17:21)
--- NOTE | 2018-01-15 06:49 | NUR ---
MS 1 RN NOTE PT IN BED AWAKE. NO DISTRESS OR DISCOMFORT NOTED. NO SS OF PAIN NOTED. KEPT HER DRY AND CLEAN, ALL NEEDS ATTENDED. F/C INTACT AND PATENT DRAINING WELL. SIDE RAILS UP X 3 AND CALL LIGHT WITHIN REACH. WILL ENDORSE TO DAY SHIFT NURSE FOR CONTINUE CARE.
[2018-01-15 08:00] VITALS: BP 174/88
[2018-01-15 08:14] VITALS: BP 174/88
[2018-01-15] MEDS: DOCUSATE SODIUM 100 MG CAPSULE PO SCH ×2 (09:00→17:00)
[2018-01-15] MEDS: ASPIRIN 325 MG TABLET PO SCH (09:00)
[2018-01-15] MEDS: PANTOPRAZOLE 40 MG VIAL IV SCH (09:35)
[2018-01-15] MEDS: IV NS 0.9% 1,000 ML IV PRN (13:11)
[2018-01-15] MEDS: MORPHINE SULFATE INJ 4 MG/ML DISP.SYRIN IV PRN (13:11)
[2018-01-15 16:00] VITALS: BP 164/74
--- NOTE | 2018-01-15 18:10 | NUR ---
RN NOTE PATIENT DISCHARGED TO HOSPICE CARE. LEFT VIA AMBULANCE. PAPERWORK COMPLETED AND SIGNED. IV SITE AND ID BAND REMOVED.
== END 2018-01-15 18:16 | disposition hospice, home (50) | DRG 64 ==
LOC: TELE-TD 21:19 → TELE1 01-08 09:13 → MEDSG1 01-09 10:28
PROVIDERS: ADMIT Nurse Practitioner Acute Care; ATTEND Nurse Practitioner Acute Care
DX: I63.9 Cerebral infarction, unspecified (principal); N17.0 Acute kidney failure with tubular necrosis; L89.311 Pressure ulcer of right buttock, stage 1; L89.150 Pressure ulcer of sacral region, unstageable; E44.0 Moderate protein-calorie malnutrition; G81.91 Hemiplegia, unspecified affecting right dominant side; E88.09 Other disorders of plasma-protein metabolism, not elsewhere classified; R13.10 Dysphagia, unspecified; E11.9 Type 2 diabetes mellitus without complications; F03.90 Unspecified dementia, unspecified severity, without behavioral disturbance, psychotic disturbance, mood disturbance, and anxiety; I10 Essential (primary) hypertension; Z86.19 Personal history of other infectious and parasitic diseases; E78.5 Hyperlipidemia, unspecified; Z86.73 Personal history of transient ischemic attack (TIA), and cerebral infarction without residual deficits; F41.9 Anxiety disorder, unspecified; L98.8 Other specified disorders of the skin and subcutaneous tissue; R29.810 Facial weakness; R90.89 Other abnormal findings on diagnostic imaging of central nervous system
CPT/HCPCS: 36415; 70492; 70544-TC; 70551-TC; 71045-TC; 80048-TC; 80053-TC; 80061-TC; 80305; 81000-TC; 82945-TC; 82962-TC; 83735-TC; 83880; 84100-TC; 84439-TC; 84443-TC; 84484-TC; 85025-TC; 85652-TC; 85730-TC; 87081-TC; 87086-TC; 92526; 92611-TC; 93307-TC; 97110-TC; 97112-TC; 97530-TC; C9113; J2270; J3480; J7030; Z7610